=== PATIENT | male | born 1950 | race Caucasian/White ===

== ENCOUNTER 2024-04-24 15:09 | Emergency (ER) | payer MEDICARE, OTHER, SELFPAY ==
--- NOTE | 2024-04-24 15:14 | ECG_ITS ---
Test Date: 2024-04-24 15:13:14 Measurements Intervals [place] Rate: 76 P: 29 MN: 196 QRS: -54 QRSD: 114 T: 48 QT: 375 QTc: 424 Interpretive Statements SINUS RHYTHM WITH SINUS ARRHYTHMIA PATTERN CONSISTENT WITH PULMONARY DISEASE LEFT ANTERIOR FASCICULAR BLOCK [QRS AXIS <= -45, QR IN I, RS IN II] SEPTAL MYOCARDIAL INFARCTION , OF INDETERMINATE AGE [40+ ms Q WAVE IN V1/V2] ABNORMAL ECG No previous ECG available for comparison Electronically Signed On 04-24-2024 16:44:01 [facility]NAGER [facility] by Scott Day M.D.
[2024-04-24 15:15] VITALS: BP 107/84; PULSE 95; RESP 16; O2SAT 95
--- NOTE | 2024-04-24 15:17 | ED_ITS ---
HPI - Arrhythmia/Palpitations General Chief Complaint: Arrhythmia/Palpitations Stated Complaint: SOB, Fast heart rate Time Seen by Provider: 04/24/24 15:10 Source: patient and EMS Mode of arrival: EMS Limitations: no limitations History of Present Illness HPI narrative: This is a 73-year-old male, no significant past medical history, presents to the emergency department by EMS for SVT. The patient states he was in his usual state of health today, when he suddenly became lightheaded, nauseous and short of breath. He denies loss of consciousness. He denies any change in oral supplements or drug use. Shortly prior to arrival here, the patient states he suddenly began to feel improved. EMS reports the patient was in SVT with heart rate in the 150s on their arrival. Blood pressure reported in the 110s. 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 They noted the patient spontaneously converted to a sinus rhythm shortly to arrival. Related Data Allergies Allergy/AdvReac Type Severity Reaction Status Date / Time furosemide [From Lasix] Allergy Swelling Verified 04/24/24 15:21 Review of Systems Review of Systems: All systems reviewed & are unremarkable except as noted in HPI and below PMFSH Past Medical History Medical History No significant past medical history Surgical History Surgical History No significant past surgical history Social History Social History Smoking status: Former smoker Alcohol intake: current Substance use: never Exam Narrative: GENERAL: Well-developed, well-nourished, and in no acute distress. HEAD: Normocephalic, atraumatic. EYES: PERRLA and EOMI. ENT: Nares clear, no rhinorrhea or epistaxis. Mucous membranes moist. Oropharynx without tonsillar hypertrophy exudate or other lesions. CHEST: Clear to auscultation. No respiratory distress. No wheezes rales or rhonchi HEART: Regular rate and rhythm. No murmur heard. Normal peripheral pulses. ABDOMEN: Soft, nontender, nondistended, normal active bowel sounds. EXTREMITIES: Normal range of motion. No edema. SKIN: Warm, dry, no rash. NEURO: Alert and oriented x3. No focal deficit. Moving all 4 limbs spontaneously PSYCH: Normal mood and affect. Course Course Emergency Course: 15:19 - EMS transmitted an EKG that demonstrates supraventricular tachycardia with rate 158, left axis deviation, left anterior fascicular block with T-wave inversion mass in a 1 L though no other ST segment elevations concerning for ischemia. QTC of 455 is noted on arrival. The patient is in sinus rhythm. No specific interventions were done by EMS (a BLS unit). 16:58 - CBC demonstrates mildly elevated white blood cell count of 10.5 but is otherwise unremarkable. Chemistries demonstrate mild hyponatremia with sodium of 136 but is otherwise unremarkable, including a normal magnesium. TSH within normal limits. EKG not concerning for arrhythmia. During observation in the emergency department, the patient did not have any recurrent episodes SVT. Will give IV fluids and discharge. I discussed the findings and recommendations with The patient. Discussed return and emergency precautions including signs/symptoms of ACS and respiratory distress. The patient voiced understanding and agreement with the plan. All questions answered to his satisfaction. Vital Signs Vital signs: Vital Signs Pulse Rate 95 04/24/24 15:15 Respiratory Rate 16 04/24/24 15:15 Blood Pressure 107/84 04/24/24 15:15 Pulse Oximetry 95 04/24/24 15:15 Oxygen Delivery Room Air 04/24/24 15:15 Temperature 97.6 F 04/24/24 15:40 Pulse Rate 65 04/24/24 17:30 Respiratory Rate 16 04/24/24 17:30 Blood Pressure 104/78 04/24/24 17:30 Pulse Oximetry 98 04/24/24 17:30 Oxygen Delivery Room Air 04/24/24 15:15 MDM - Arrhythmia/Palpitations MDM Narrative Medical decision making narrative: plan: EKG, labs, IV fluids, reassess Differential Diagnosis Differential diagnosis: Likely supraventricular tachycardia and other ( arrhythmia, metabolic abnormality, hyperthyroidism, dehydration, other) Lab Data 04/24/24 15:44 04/24/24 15:44 Labs: Lab Results 04/24/24 Range/Units 15:44 WBC 10.5 H (4.5-10.0) K/mm3 RBC 5.15 (4.6-6.20) M/mm3 Hgb 15.7 (14.0-18.0) g/dL Hct 46.8 (42.0-52.0) % MCV 90.9 (80-100) fl MCH 30.5 (26-34) pg MCHC 33.5 (32-36) g/dl RDW 15.2 H (11.5-14.5) % Plt Count 162 (150-375) k/mm3 MPV 10.4 (7.4-10.4) fl Immature Gran % (Auto) 0.7 H (0-0.5) % Neut % (Auto) 59.9 (45.5-73.1) % Lymph % (Auto) 29.0 (18.3-44.2) % [place] % (Auto) 6.4 (2.6-8.5) % Eos % (Auto) 3.0 (0-4.4) % Baso % (Auto) 1.0 (0.2-1.2) % Lymph # (Auto) 3.06 (0.9-3.2) K/mm3 [place] # (Auto) 0.7 H (0.1-0.6) K/mm3 Eos # (Auto) 0.3 (0-0.3) K/mm3 Baso # (Auto) 0.1 (0.0-0.1) K/mm3 Abs Immat Gran (auto) 0.07 H (0.00-0.031) K/mm3 Absolute Neuts (auto) 6.3 (1.3-6.7) K/mm3 Absolute Nucleated RBC 0.000 (0.0-0.012) K/mm3 Nucleated RBC % 0.0 (0.0-0.2) % Sodium 136 L (137-145) mmol/L Potassium 4.1 (3.4-5.0) mmol/L Chloride 108 H (98-107) mmol/L Carbon Dioxide 23 (22-30) mmol/L Anion Gap 5 (4-12) mmol/L BUN 28 H (9-20) mg/dL Creatinine 1.20 (0.7-1.3) mg/dL Estim Creat Clear Calc 57 ml/min Estimated GFR 59 (59 - ) Glucose 109 (65-110) mg/dL Calcium 9.4 (8.4-10.2) mg/dL Magnesium 1.8 (1.6-2.3) mg/dL Total Bilirubin 0.7 (0.2-1.3) mg/dL AST 33 (17-59) U/L ALT 25 (6-50) U/L Alkaline Phosphatase 75 (38-126) U/L Total Protein 6.0 L (6.3-8.2) g/dL Albumin 4.1 (3.5-5.1) g/dL TSH 2.060 (0.465-4.680) uIU/mL ECG Data EKG #1: Attestation: I personally reviewed and interpreted this ECG as follows: ECG completion date: 04/24/24 ECG completion time: 15:13 Prior ECG tracings: not available for review Interpretation: sinus rhythm, rate 76, left axis deviation, no ST segment elevations or T-wave inversions concerning for ischemia, left anterior fascicular block, normal intervals with QTC of 406. Compared to EKG transmitted by EMS done at 14:42 today, supraventricular tachycardia has resolved. Discharge Plan Discharge Clinical Impression: Supraventricular tachycardia, Palpitations Patient Disposition: Home, Self-Care Condition: Stable Instructions: Antibiotic Form Additional Instructions: You were seen in the emergency department. Your CBC demonstrates a did a slightly elevated white blood cell count of 10.5 but was otherwise unremarkable, including a hemoglobin of 15.7. Your chemistries demonstrated marginally decreased sodium of 136 but is otherwise unremarkable, including a normal magnesium of 1.98 and a thyroid stimulating hormone 2.06. I recommend following up with your primary care doctor. If you develop chest pain, shortness of breath, loss of consciousness, weakness/numbness, or if you have other emergent concerns for life, limb, or eyesight, return to the emergency department. Patient Language: Bulgarian Follow-up/Referrals: PHYSICIAN NOT ON STAFF,NONSTAFF [Non-Staff] - 1 Week Time of Disposition: 17:06
[2024-04-24 15:40] VITALS: TEMP 36.4
[2024-04-24 15:51] LABS: Basophils Absolute Auto 0.1 K/mm3 (0.0-0.1); Eosinophils Absolute Auto 0.3 K/mm3 (0-0.3); Hematocrit 46.8 % (42.0-52.0); Hemoglobin 15.7 g/dL (14.0-18.0); Immature Granulocyte Absolute 0.07 K/mm3 (0.00-0.031); Immature Granulocyte Percent A 0.7 % (0-0.5); Lymphocytes Absolute Auto 3.06 K/mm3 (0.9-3.2); Mean Corpuscular HGB Conc 33.5 g/dl (32-36); Mean Corpuscular Hemoglobin 30.5 pg (26-34); Mean Corpuscular Volume 90.9 fl (80-100); Mean Platelet Volume 10.4 fl (7.4-10.4); Monocytes Absolute Auto 0.7 K/mm3 (0.1-0.6); Monocytes Percent Auto 6.4 % (2.6-8.5); Neutrophils Absolute Auto 6.3 K/mm3 (1.3-6.7); Neutrophils Percent Auto 59.9 % (45.5-73.1); Platelet Count Result 162 k/mm3 (150-375); Red Blood Count 5.15 M/mm3 (4.6-6.20); Red Cell Distribution Width 15.2 % (11.5-14.5); White Blood Count 10.5 K/mm3 (4.5-10.0)
[2024-04-24 16:04] LABS: Alanine Aminotransferase 25 U/L (6-50); Albumin Level 4.1 g/dL (3.5-5.1); Alkaline Phosphatase 75 U/L (38-126); Anion Gap 5 mmol/L (4-12); Aspartate Amino Transferase 33 U/L (17-59); Bilirubin,Total 0.7 mg/dL (0.2-1.3); Blood Urea Nitrogen 28 mg/dL (9-20); Calcium 9.4 mg/dL (8.4-10.2); Carbon Dioxide 23 mmol/L (22-30); Chloride 108 mmol/L (98-107); Estimated CRCL calculation 57 ml/min; Estimated Glomerular Filt Rate 59; Glucose 109 mg/dL (65-110); Magnesium 1.8 mg/dL (1.6-2.3); Potassium 4.1 mmol/L (3.4-5.0); Sodium 136 mmol/L (137-145)
[2024-04-24 16:40] VITALS: BP 92/74; PULSE 93; RESP 16; O2SAT 95
[2024-04-24] MEDS: SODIUM CHLORIDE 0.9% IV 1,000 ML 999 ML IV CONT (16:41)
--- NOTE | 2024-04-24 17:01 | PC.NURSE ---
Pt. able to ambulate to the bathroom independently w/ a steady gait. Pt. has no complaints at this time. Denies chest pain and SOB
[2024-04-24 17:30] VITALS: BP 104/78; PULSE 65; RESP 16; O2SAT 98
== END 2024-04-24 20:29 | disposition home or self-care (01) ==
PROVIDERS: Emergency Provider Preventive Medicine Aerospace Medicine
DX: I47.10 Supraventricular tachycardia, unspecified (principal); R00.2 Palpitations; Z87.891 Personal history of nicotine dependence; I44.4 Left anterior fascicular block; R94.31 Abnormal electrocardiogram [ECG] [EKG]
CPT/HCPCS: 36415; 80053; 83735; 84443; 85025; 93005; 96360; 99283; J7030